=== PATIENT | female | born 2000 | race Two or more races ===

== ENCOUNTER 2018-06-04 09:31 | Outpatient (CLI) | payer OTHER | END 2018-06-04 09:38 | disposition home or self-care (01) | LOC: SONOGRAMA 09:31 | DX: E04.2 Nontoxic multinodular goiter (principal) ==

== ENCOUNTER 2020-02-20 14:01 | Outpatient (CLI) | payer OTHER | END 2020-02-20 14:30 | disposition home or self-care (01) | LOC: OFIC 805 14:01 | PROVIDERS: ATTEND Otolaryngology | DX: J33.8 Other polyp of sinus (principal) ==